=== PATIENT | male | born 1990 | race Caucasian/White ===

== ENCOUNTER 2021-10-04 21:48 | Inpatient (IN) | payer OTHER ==
[~2021-10-04] VITALS: Ht 182.8 cm; Wt 72.6 kg
[2021-10-04 21:57] VITALS: BP 132/88
[2021-10-04 22:22] LABS: HEMATOCRIT 44.1 % (42.0-52.0); MEAN CELL VOLUME 88.4 fl (80.0-94.0); MEAN CORPUSCULAR HGB 30.1 pg (27.0-31.0); MEAN PLATELET VOLUME 10.1 fl (9.6-12.3); PLATELET COUNT AUTOMATED 220 10*3/uL (130-400); RED BLOOD COUNT 4.99 10*6/uL (4.50-5.90); RED CELL DISTRI WIDTH 12.1 % (0-14.5); WHITE BLOOD COUNT 5.2 10*3/uL (4.8-10.8)
[2021-10-04 22:33] LABS: MANUAL DIFF REFLEX YES
[2021-10-04 22:41] LABS: ALKALINE PHOSPHATASE 97 U/L (45-117); BUN 16 mg/dl (7-24); CHLORIDE 108 mmol/L (98-107); CREATININE 1.06 mg/dL (0.70-1.30); POTASSIUM 3.6 mmol/L (3.5-5.1); SGOT/AST 27 IU/L (3-35); SGPT/ALT 54 U/L (12-78); SODIUM 139 mmol/L (136-145)
[2021-10-04 23:04] LABS: BASOPHILS 1 % (0-1); PLATELET SUFFICIENCY NORMAL (NORMAL); TOTAL CELLS COUNTED 100 #CELLS
[2021-10-05 00:50] VITALS: BP 111/62
[2021-10-05 03:01] VITALS: BP 123/76
[2021-10-05 06:13] LABS: HEMATOCRIT 41.7 % (42.0-52.0); MEAN CELL VOLUME 89.9 fl (80.0-94.0); MEAN CORPUSCULAR HGB 31.3 pg (27.0-31.0); MEAN CORPUSCULAR HGB CONC 34.8 g/dl (33.0-37.0); MEAN PLATELET VOLUME 10.8 fl (9.6-12.3); PLATELET COUNT AUTOMATED 196 10*3/uL (130-400); RED BLOOD COUNT 4.64 10*6/uL (4.50-5.90); RED CELL DISTRI WIDTH 12.1 % (0-14.5); WHITE BLOOD COUNT 5.6 10*3/uL (4.8-10.8)
[2021-10-05 06:18] LABS: ALKALINE PHOSPHATASE 91 U/L (45-117); BUN 13 mg/dl (7-24); CHLORIDE 108 mmol/L (98-107); CREATININE 1.06 mg/dL (0.70-1.30); POTASSIUM 3.9 mmol/L (3.5-5.1); SGOT/AST 26 IU/L (3-35); SGPT/ALT 55 U/L (12-78); SODIUM 139 mmol/L (136-145); TOTAL PROTEIN 6.5 gm/dL (6.4-8.2)
[2021-10-05 06:25] LABS: MANUAL DIFF REFLEX YES
[2021-10-05 06:37] LABS: ACT PARTIAL THROMBO TIME 31.6 SECONDS (20.0-32.1)
[2021-10-05 07:33] LABS: ATYPICAL LYMPHS 1 % (0-0); PLATELET SUFFICIENCY NORMAL (NORMAL); TOTAL CELLS COUNTED 100 #CELLS
[2021-10-05 08:00] VITALS: BP 104/61
[2021-10-05 12:00] VITALS: BP 116/57
[2021-10-05 16:00] VITALS: BP 138/59
[2021-10-05 20:00] VITALS: BP 118/67
[2021-10-06] VITALS (7 sets, daily range): BP systolic 76–118; BP diastolic 36–68
[2021-10-06 05:57] LABS: BUN 9 mg/dl (7-24); CHLORIDE 108 mmol/L (98-107); CREATININE 1.24 mg/dL (0.70-1.30); POTASSIUM 3.5 mmol/L (3.5-5.1); SODIUM 139 mmol/L (136-145)
[2021-10-06 06:28] LABS: HEMATOCRIT 44.6 % (42.0-52.0); MEAN CELL VOLUME 88.8 fl (80.0-94.0); MEAN CORPUSCULAR HGB 30.5 pg (27.0-31.0); MEAN CORPUSCULAR HGB CONC 34.3 g/dl (33.0-37.0); MEAN PLATELET VOLUME 10.7 fl (9.6-12.3); PLATELET COUNT AUTOMATED 242 10*3/uL (130-400); RED BLOOD COUNT 5.02 10*6/uL (4.50-5.90); RED CELL DISTRI WIDTH 12.3 % (0-14.5); WHITE BLOOD COUNT 6.9 10*3/uL (4.8-10.8)
[2021-10-06 06:49] LABS: MANUAL DIFF REFLEX YES
[2021-10-06 07:13] LABS: PLATELET SUFFICIENCY NORMAL (NORMAL); POLYCHROMASIA SLIGHT; TOTAL CELLS COUNTED 100 #CELLS
[2021-10-07] VITALS: BP 110/63
[2021-10-07 06:55] LABS: HEMATOCRIT 40.5 % (42.0-52.0); MEAN CELL VOLUME 88.2 fl (80.0-94.0); MEAN CORPUSCULAR HGB 30.5 pg (27.0-31.0); MEAN CORPUSCULAR HGB CONC 34.6 g/dl (33.0-37.0); MEAN PLATELET VOLUME 10.4 fl (9.6-12.3); PLATELET COUNT AUTOMATED 254 10*3/uL (130-400); RED BLOOD COUNT 4.59 10*6/uL (4.50-5.90)
[2021-10-07 06:56] LABS: MANUAL DIFF REFLEX YES
[2021-10-07 07:00] LABS: BUN 14 mg/dl (7-24); CHLORIDE 113 mmol/L (98-107); CREATININE 1.03 mg/dL (0.70-1.30); POTASSIUM 3.9 mmol/L (3.5-5.1); SODIUM 141 mmol/L (136-145)
[2021-10-07 07:27] LABS: PLATELET SUFFICIENCY NORMAL (NORMAL); POLYCHROMASIA SLIGHT; TOTAL CELLS COUNTED 100 #CELLS; TOXIC GRANULATION SLIGHT
[2021-10-07 08:00] VITALS: BP 119/73
[2021-10-07 12:00] VITALS: BP 120/70
[2021-10-07] MEDS ORDERED: CIPROFLOXACIN500 M4 PO (12:14)
[2021-10-07] MEDS ORDERED: PREDNISONE50 MG PO (12:14)
[2021-10-07] MEDS ORDERED: METRONIDAZOLE500 M1 PO (12:14)
[2021-10-07] MEDS ORDERED: DELZICOL400 M2 PO (12:17)
[2021-10-07] MEDS ORDERED: ANUSOL HC,ANUCO25 MG PO (12:17)
[2021-10-07] MEDS ORDERED: PREVACID30 M2 PO (15:14)
== END 2021-10-07 14:50 | disposition home or self-care (01) | DRG 378 ==
LOC: ED 21:48 → 5E 23:19 → EDHOLD 23:19 → 5E 10-05 02:52
PROVIDERS: Internal Medicine; ADMIT Internal Medicine; ATTEND Internal Medicine
PROC: 0DB68ZX Excision of Stomach, Via Natural or Artificial Opening Endoscopic, Diagnostic (ICD-10-PCS; principal; 2021-10-06)
PROC: 0DBE8ZX Excision of Large Intestine, Via Natural or Artificial Opening Endoscopic, Diagnostic (ICD-10-PCS; 2021-10-06)
DX: K29.71 Gastritis, unspecified, with bleeding (principal); K51.00 Ulcerative (chronic) pancolitis without complications; K44.9 Diaphragmatic hernia without obstruction or gangrene; E87.8 Other disorders of electrolyte and fluid balance, not elsewhere classified; R19.7 Diarrhea, unspecified; R00.0 Tachycardia, unspecified

== ENCOUNTER → 2021-10-17 | Outpatient (CLI) | payer OTHER ==
[~2021-10-17] MED LIST: ANUSOL HC,ANUCO25 MG PO; CIPROFLOXACIN500 M4 PO; DELZICOL400 M2 PO; METRONIDAZOLE500 M1 PO; PREDNISONE50 MG PO; PREVACID30 M2 PO
== END | disposition home or self-care (01) ==
LOC: RESCLI 13:19
PROVIDERS: ATTEND Internal Medicine
DX: K29.01 Acute gastritis with bleeding (principal); K52.9 Noninfective gastroenteritis and colitis, unspecified; K62.5 Hemorrhage of anus and rectum; Z79.899 Other long term (current) drug therapy

== ENCOUNTER → 2021-11-17 | Outpatient (CLI) | payer OTHER ==
[2021-11-17 14:57] LABS: BASO % 0.3 % (0.0-1.0); EOS % 0.3 % (1.0-4.0); HEMATOCRIT 42.9 % (42.0-52.0); LYMPH # 0.8 10*3/uL (1.3-4.4); LYMPH % 9.3 % (27.0-41.0); MEAN CELL VOLUME 88.5 fl (80.0-94.0); MEAN CORPUSCULAR HGB 29.3 pg (27.0-31.0); MEAN CORPUSCULAR HGB CONC 33.1 g/dl (33.0-37.0); MEAN PLATELET VOLUME 10.3 fl (9.6-12.3); MONO # 0.2 10*3/uL (0.1-1.0); MONO % 2.2 % (3.0-9.0); NEUT # 7.8 10*3/uL (2.3-7.9); NEUT % 87.5 % (47.0-73.0); PLATELET COUNT AUTOMATED 244 10*3/uL (130-400); RED BLOOD COUNT 4.85 10*6/uL (4.50-5.90); RED CELL DISTRI WIDTH 12.1 % (0-14.5); WHITE BLOOD COUNT 8.9 10*3/uL (4.8-10.8)
[2021-11-17 15:15] LABS: ALKALINE PHOSPHATASE 83 U/L (45-117); BUN 22 mg/dl (7-24); CHLORIDE 110 mmol/L (98-107); IRON 37 ug/dL (65-175); SGOT/AST 17 IU/L (3-35); SGPT/ALT 47 U/L (12-78); SODIUM 140 mmol/L (136-145); TOTAL IRON BINDING CAPACITY 345 ug/dl (250-450)
== END | disposition home or self-care (01) ==
LOC: LAB 14:20
PROVIDERS: Internal Medicine; ATTEND Internal Medicine
DX: K52.9 Noninfective gastroenteritis and colitis, unspecified (principal); K62.5 Hemorrhage of anus and rectum

== ENCOUNTER → 2021-11-18 | Outpatient (CLI) | payer OTHER | END | disposition home or self-care (01) | LOC: LAB 11:39 | PROVIDERS: ATTEND Internal Medicine | DX: K52.9 Noninfective gastroenteritis and colitis, unspecified (principal) ==

== ENCOUNTER → 2021-12-08 | Outpatient (CLI) | payer SELFPAY ==
[2021-12-08 12:44] LABS: BUN 22 mg/dl (7-24); CHLORIDE 108 mmol/L (98-107); CREATININE 0.98 mg/dL (0.70-1.30); SODIUM 142 mmol/L (136-145)
== END | disposition home or self-care (01) ==
LOC: LAB 11:27
PROVIDERS: ATTEND Internal Medicine
DX: R53.83 Other fatigue (principal)

== ENCOUNTER → 2022-01-01 | Outpatient (CLI) | payer OTHER ==
[2022-01-01 09:11] LABS: BASO % 0.7 % (0.0-1.0); EOS # 0.2 10*3/uL (0.0-0.4); EOS % 3.5 % (1.0-4.0); HEMATOCRIT 42.4 % (42.0-52.0); LYMPH # 1.1 10*3/uL (1.3-4.4); LYMPH % 19.1 % (27.0-41.0); MEAN CELL VOLUME 85.8 fl (80.0-94.0); MEAN CORPUSCULAR HGB 28.7 pg (27.0-31.0); MEAN CORPUSCULAR HGB CONC 33.5 g/dl (33.0-37.0); MEAN PLATELET VOLUME 10.3 fl (9.6-12.3); MONO # 0.4 10*3/uL (0.1-1.0); MONO % 6.2 % (3.0-9.0); NEUT # 4.1 10*3/uL (2.3-7.9); NEUT % 70.3 % (47.0-73.0); PLATELET COUNT AUTOMATED 167 10*3/uL (130-400); RED BLOOD COUNT 4.94 10*6/uL (4.50-5.90); RED CELL DISTRI WIDTH 12.6 % (0-14.5); WHITE BLOOD COUNT 5.8 10*3/uL (4.8-10.8)
[2022-01-01 09:49] LABS: CHLORIDE 112 mmol/L (98-107); SGOT/AST 29 IU/L (3-35); SODIUM 143 mmol/L (136-145)
[2022-01-01 09:57] LABS: ALKALINE PHOSPHATASE 88 U/L (45-117); BUN 27 mg/dl (7-24); CREATININE 0.97 mg/dL (0.70-1.30); IRON 54 ug/dL (65-175); SGPT/ALT 59 U/L (12-78); TOTAL PROTEIN 6.8 gm/dL (6.4-8.2)
[2022-01-02 05:06] LABS: HEPATITIS B SURFACE AB Reactive (.); HEPATITIS B SURFACE AG Negative (Negative)
[2022-01-03 17:06] LABS: TB1 Ag VALUE 0.03 IU/mL (.)
== END | disposition home or self-care (01) ==
LOC: LAB 08:24
PROVIDERS: ATTEND Internal Medicine
DX: Z11.59 Encounter for screening for other viral diseases (principal); K90.9 Intestinal malabsorption, unspecified; K58.9 Irritable bowel syndrome, unspecified

== ENCOUNTER → 2022-03-30 | Outpatient (CLI) | payer OTHER ==
[2022-03-30 12:25] LABS: BASO % 0.6 % (0.0-1.0); EOS # 0.2 10*3/uL (0.0-0.4); EOS % 3.3 % (1.0-4.0); HEMATOCRIT 44.7 % (42.0-52.0); LYMPH # 1.4 10*3/uL (1.3-4.4); MEAN CELL VOLUME 87.6 fl (80.0-94.0); MEAN CORPUSCULAR HGB 30.4 pg (27.0-31.0); MEAN CORPUSCULAR HGB CONC 34.7 g/dl (33.0-37.0); MEAN PLATELET VOLUME 10.1 fl (9.6-12.3); MONO # 0.4 10*3/uL (0.1-1.0); MONO % 6.8 % (3.0-9.0); NEUT # 3.4 10*3/uL (2.3-7.9); NEUT % 63.1 % (47.0-73.0); PLATELET COUNT AUTOMATED 175 10*3/uL (130-400); RED CELL DISTRI WIDTH 12.6 % (0-14.5); WHITE BLOOD COUNT 5.4 10*3/uL (4.8-10.8)
[2022-03-30 12:47] LABS: ALKALINE PHOSPHATASE 96 U/L (45-117); BUN 27 mg/dl (7-24); CHLORIDE 108 mmol/L (98-107); CREATININE 0.95 mg/dL (0.70-1.30); IRON 101 ug/dL (65-175); POTASSIUM 3.8 mmol/L (3.5-5.1); SGOT/AST 18 IU/L (3-35); SGPT/ALT 41 U/L (12-78); SODIUM 137 mmol/L (136-145); TOTAL PROTEIN 6.6 gm/dL (6.4-8.2)
[2022-03-30 13:25] LABS: FERRITIN 31.3 ng/mL (22.0-322.0)
== END | disposition home or self-care (01) ==
LOC: LAB 12:00
PROVIDERS: ATTEND Internal Medicine
DX: K90.9 Intestinal malabsorption, unspecified (principal); K52.9 Noninfective gastroenteritis and colitis, unspecified

== ENCOUNTER → 2023-04-22 | Outpatient (CLI) | payer OTHER ==
[2023-04-22 11:49] LABS: BASO % 0.5 % (0.0-1.0); EOS # 0.2 10*3/uL (0.0-0.4); EOS % 3.7 % (1.0-4.0); HEMATOCRIT 47.2 % (42.0-52.0); LYMPH # 1.2 10*3/uL (1.3-4.4); LYMPH % 21.4 % (27.0-41.0); MEAN CELL VOLUME 88.9 fl (80.0-94.0); MEAN CORPUSCULAR HGB 30.9 pg (27.0-31.0); MEAN CORPUSCULAR HGB CONC 34.7 g/dl (33.0-37.0); MEAN PLATELET VOLUME 10.3 fl (9.6-12.3); MONO # 0.3 10*3/uL (0.1-1.0); MONO % 5.4 % (3.0-9.0); NEUT # 3.9 10*3/uL (2.3-7.9); NEUT % 68.8 % (47.0-73.0); PLATELET COUNT AUTOMATED 182 10*3/uL (130-400); RED BLOOD COUNT 5.31 10*6/uL (4.50-5.90); RED CELL DISTRI WIDTH 12.2 % (0-14.5); WHITE BLOOD COUNT 5.7 10*3/uL (4.8-10.8)
[2023-04-22 12:11] LABS: ALKALINE PHOSPHATASE 100 U/L (46-116); BUN 19 mg/dl (9-23); CHLORIDE 107 mmol/L (98-107); POTASSIUM 4.3 mmol/L (3.4-5.1); SGPT/ALT 33 U/L (5-49); TOTAL PROTEIN 6.9 gm/dL (6.0-8.0)
== END | disposition home or self-care (01) ==
LOC: LAB 11:30
PROVIDERS: ATTEND Physician Assistant
DX: L21.9 Seborrheic dermatitis, unspecified (principal); K51.90 Ulcerative colitis, unspecified, without complications; F10.90 Alcohol use, unspecified, uncomplicated; Z98.890 Other specified postprocedural states; Z79.899 Other long term (current) drug therapy